=== PATIENT | female | born 1940 | race Caucasian/White ===

== ENCOUNTER 2018-05-13 09:21 | Outpatient (REF) | payer MEDICARE, SELFPAY ==
[2018-05-13 22:20] LABS: Anion Gap 9.9 mmol/L (3-11); BUN 17 mg/dL (7-18); CO2 31.1 mmol/L (21.0-32.0); Calcium 9.6 mg/dL (8.5-10.1); Chloride 101 mmol/L (98-107); Cholesterol 248 mg/dL (50-200); Glucose 119 mg/dL (70-100); HDL Cholesterol 58 mg/dL (40-60); LDL CHOLESTEROL 158 mg/dL (<100); Potassium 3.8 mmol/L (3.5-5.1); Sodium 142 mmol/L (136-145); Triglyceride 147 mg/dL (30-150)
== END 2018-05-13 09:41 ==
LOC: NCHCN 09:21
PROVIDERS: PCP Nurse Practitioner Family; Visit Provider Nurse Practitioner Family
DX: I10 Essential (primary) hypertension (principal); E78.5 Hyperlipidemia, unspecified; M85.80 Other specified disorders of bone density and structure, unspecified site; H35.30 Unspecified macular degeneration
CPT/HCPCS: 80048; 80061; 83721

== ENCOUNTER 2018-05-27 00:59 | Outpatient (CLI) | payer MEDICARE, SELFPAY ==
--- NOTE | 2018-05-27 17:01 | DI.MAMMO_ITS ---
SYMPTOMS/DIAGNOSIS: SCREENING, Z12.31 MAMMOGRAM: Mammograms were interpreted according to the usual protocol including computer analysis with CAD system, tomosynthesis and C view imaging. The breast tissue is of moderate radiodensity. There is no mass. There are no suspicious calcifications and there has been no significant interval change when compared with prior images. SUMMARY: No evidence of malignancy, Category I, yearly screening mammography is recommended. Breast density Category B. SA ASSESSMENT OF FINDINGS: Negative. Category 1. Patient will receive a letter notifying them of these results. BI-RADS category B. There are scattered areas of fibroglandular density.
== END 2018-05-27 01:19 ==
PROVIDERS: PCP Nurse Practitioner Family; Visit Provider Nurse Practitioner Family
DX: Z12.31 Encounter for screening mammogram for malignant neoplasm of breast (principal)
CPT/HCPCS: 77063; 77067

== ENCOUNTER 2018-11-20 11:33 | Outpatient (REF) | payer MEDICARE, SELFPAY ==
[2018-11-20 21:21] LABS: Anion Gap 9.6 mmol/L (3-11); BUN 19 mg/dL (7-18); CO2 28.4 mmol/L (21.0-32.0); CREATININE 0.89 mg/dL (0.55-1.02); Calcium 9.5 mg/dL (8.5-10.1); Chloride 103 mmol/L (98-107); Glucose 82 mg/dL (70-100); Potassium 3.4 mmol/L (3.5-5.1); Sodium 141 mmol/L (136-145)
== END 2018-11-20 11:53 ==
LOC: NCHCN 11:33
PROVIDERS: PCP Nurse Practitioner Family; Visit Provider Nurse Practitioner Family
DX: I10 Essential (primary) hypertension (principal)
CPT/HCPCS: 80048

== ENCOUNTER 2019-05-07 13:31 | Outpatient (REF) | payer MEDICARE, SELFPAY ==
[2019-05-07 19:50] LABS: Anion Gap 8.1 mmol/L (3-11); BUN 18 mg/dL (7-18); CO2 30.9 mmol/L (21.0-32.0); CREATININE 0.85 mg/dL (0.55-1.02); Calcium 9.5 mg/dL (8.5-10.1); Chloride 103 mmol/L (98-107); Glucose 111 mg/dL (74-106); Potassium 3.5 mmol/L (3.5-5.1); Sodium 142 mmol/L (136-145)
== END 2019-05-07 13:51 ==
LOC: NCHCN 13:31
PROVIDERS: PCP Nurse Practitioner Family; Visit Provider Nurse Practitioner Family
DX: I10 Essential (primary) hypertension (principal); H35.30 Unspecified macular degeneration; M85.80 Other specified disorders of bone density and structure, unspecified site
CPT/HCPCS: 80048

== ENCOUNTER 2019-08-03 02:15 | Outpatient (CLI) | payer MEDICARE, SELFPAY ==
--- NOTE | 2019-08-03 | DI.MAMMO_ITS ---
EXAM: MG MAMMO SCREENING CLINICAL HISTORY: SCREENING, Z12.39 TECHNIQUE: Bilateral full field digital CC and MLO mammographic images were obtained with 3D tomosyn thesis and utilizing computer aided detection (CAD). COMPARISON: Available for comparison. FINDINGS: Masses/Architectural Distortion: None seen. Microcalcifications: No suspicious pleomorphic-type are seen. Skin Thickening/Nipple Retraction: None. IMPRESSION: 1. No significant interval change with no specific features of malignancy noted. 2. Unless there is more urgent need, screening mammography is recommended, as per [employer] guidelines. BI-RADS Category 1 - Negative Breast Density - Category B - Scattered areas of fibroglandular density A negative radiographic report should not delay biopsy if a dominant or clinically suspicious mass is present. Up to ten percent of cancers are not identified on mammography. A negative report may reinforce clinical impression. Adenosis and dense breasts may obscure an underlying neoplasm. False positive reports average 6 to 10%. Patient will receive a letter notifying them of these results.
== END 2019-08-03 02:35 ==
PROVIDERS: PCP Nurse Practitioner Family; Visit Provider Nurse Practitioner Family
DX: Z12.31 Encounter for screening mammogram for malignant neoplasm of breast (principal)
CPT/HCPCS: 77063; 77067

== ENCOUNTER 2019-11-13 12:43 | Outpatient (REF) | payer MEDICARE, SELFPAY ==
[2019-11-13 19:49] LABS: Calculated LDL 135 mg/dL (<100); Cholesterol 219 mg/dL (<200); Glucose 112 mg/dL (74-106); HDL Cholesterol 48 mg/dL (40-60); Triglyceride 181 mg/dL (<150)
[2019-11-14 15:45] LABS: Anion Gap 10.4 mmol/L (3-11); BUN 20 mg/dL (7-18); CO2 29.6 mmol/L (21.0-32.0); CREATININE 0.91 mg/dL (0.55-1.02); Calcium 9.9 mg/dL (8.5-10.1); Chloride 103 mmol/L (98-107); Estimated GFR 59.63 (mL/min/1.73m2); Glucose 115 mg/dL (74-106); Potassium 3.9 mmol/L (3.5-5.1); Sodium 143 mmol/L (136-145)
== END 2019-11-13 13:03 ==
LOC: NCHCN 12:43
PROVIDERS: PCP Nurse Practitioner Family; Visit Provider Nurse Practitioner Family
DX: I10 Essential (primary) hypertension (principal); H35.30 Unspecified macular degeneration; M85.80 Other specified disorders of bone density and structure, unspecified site
CPT/HCPCS: 80048; 80061; 82947

== ENCOUNTER 2020-01-18 05:25 | Outpatient (REF) | payer MEDICARE, SELFPAY ==
[2020-01-18 19:50] LABS: ALT 22 U/L (14-59); AST 18 U/L (15-37); CREATININE 0.87 mg/dL (0.55-1.02); Calculated LDL 64 mg/dL (<100); Cholesterol 163 mg/dL (<200); HDL Cholesterol 53 mg/dL (40-60); Triglyceride 234 mg/dL (<150)
== END 2020-01-18 05:45 ==
LOC: NCHCN 05:25
PROVIDERS: PCP Nurse Practitioner Family; Visit Provider Nurse Practitioner Family
DX: E78.5 Hyperlipidemia, unspecified (principal); M85.80 Other specified disorders of bone density and structure, unspecified site
CPT/HCPCS: 80061; 82565; 84450; 84460

== ENCOUNTER 2020-05-23 15:31 | Outpatient (REF) | payer MEDICARE, SELFPAY ==
[2020-05-23 15:49] LABS: Hemoglobin A1C 5.9 % (<5.7)
[2020-05-23 16:03] LABS: BUN 17 mg/dL (7-18); CREATININE 0.8 mg/dL (0.55-1.02); Calcium 9.5 mg/dL (8.5-10.1); Chloride 103 mmol/L (98-107); Glucose 177 mg/dL (74-106); Potassium 3.6 mmol/L (3.5-5.1); Sodium 142 mmol/L (136-145)
== END 2020-05-23 15:32 | disposition home or self-care (01) ==
LOC: NCHCN 15:31
PROVIDERS: PCP Nurse Practitioner Family; Visit Provider Nurse Practitioner Family
DX: I10 Essential (primary) hypertension (principal); R73.9 Hyperglycemia, unspecified
CPT/HCPCS: 80048; 83036

== ENCOUNTER 2020-08-05 01:54 | Outpatient (CLI) | payer MEDICARE, SELFPAY ==
--- NOTE | 2020-08-05 | DI.MAMMO_ITS ---
Exam(s) MAMMO SCREENING EXAM: MAMMO SCREENING CLINICAL HISTORY: SCREENING, Z12.39. TECHNIQUE: Bilateral full field digital CC and MLO mammographic images were obtained with 3D tomosyn thesis and utilizing computer aided detection (CAD). COMPARISON: Prior mammograms dating back to 2010, the most recent being July 2019. FINDINGS: There has been no significant change in the appearance and distribution of the fibroglandular tissue. There are no CAD designations. There are no new spiculated masses nor malignant appearing microcalcification groups. There is no significant architectural distortion nor skin thickening-retraction. IMPRESSION: No radiographic evidence of malignancy. BI-RADS Category 1 - Negative Breast Density - Category B - Scattered areas of fibroglandular density Breast density Category C or D implies that the patient has dense breast tissue. Dense breast tissue can make it harder to find cancer on a mammogram. Dense breast tissue is also associated with an incr eased risk of breast cancer. This information about the result of the mammogram report was provided to the patient to raise their awareness. Use this report when you speak with the patient about their risks for breast cancer, which includes their family history. At that time, you may recommend additional screening tests (Ultrasoun d or MRI) as these tests may add significant information. A negative radiographic report should not delay biopsy if a dominant or clinically suspicious mass is present. Up to ten percent of cancers are not identified on mammography. A negative report may reinforce clinical impression. Adenosis and dense breasts may obscure an underlying neoplasm. False positive reports average 6 to 10%. Patient will receive a letter notifying them of these results.
== END 2020-08-05 02:14 ==
PROVIDERS: PCP Nurse Practitioner Family; Visit Provider Nurse Practitioner Family
DX: Z12.31 Encounter for screening mammogram for malignant neoplasm of breast (principal)
CPT/HCPCS: 77063; 77067

== ENCOUNTER 2020-08-10 16:51 | Outpatient (REF) | payer MEDICARE, SELFPAY ==
[2020-08-10 14:10] LABS: Calculated LDL 125 mg/dL (<100); Cholesterol 215 mg/dL (<200); HDL Cholesterol 47 mg/dL (40-60); Triglyceride 219 mg/dL (<150)
== END 2020-08-10 16:52 | disposition home or self-care (01) ==
LOC: NCHCN 16:51
PROVIDERS: PCP Nurse Practitioner Family; Visit Provider Nurse Practitioner Family
DX: E78.5 Hyperlipidemia, unspecified (principal)
CPT/HCPCS: 80061

== ENCOUNTER 2020-10-07 08:27 | Outpatient (REF) | payer MEDICARE, SELFPAY ==
[2020-10-07 15:08] LABS: ALT 21 U/L (14-59); AST 20 U/L (15-37); Calculated LDL 115 mg/dL (<100); Cholesterol 193 mg/dL (<200); HDL Cholesterol 48 mg/dL (40-60); Triglyceride 154 mg/dL (<150)
[2020-10-07 16:43] LABS: Creatine Kinase 76 U/L (26-192)
== END 2020-10-07 08:28 | disposition home or self-care (01) ==
LOC: NCHCN 08:27
PROVIDERS: PCP Nurse Practitioner Family; Visit Provider Nurse Practitioner Family
DX: E78.5 Hyperlipidemia, unspecified (principal)
CPT/HCPCS: 80061; 82550; 84450; 84460

== ENCOUNTER 2021-04-27 10:24 | Outpatient (REF) | payer MEDICARE, SELFPAY ==
[2021-04-27 12:34] LABS: BUN 15 mg/dL (7-18); CREATININE 0.8 mg/dL (0.55-1.02); Calcium 9.2 mg/dL (8.5-10.1); Chloride 103 mmol/L (98-107); Glucose 126 mg/dL (74-106); Potassium 3.7 mmol/L (3.5-5.1); Sodium 141 mmol/L (136-145); TSH (W/Ref FT4) 1.48 uIU/mL (0.36-3.74)
[2021-04-27 12:48] LABS: Vitamin D 25 Total 41.7 ng/mL (30-100)
== END 2021-04-27 10:25 | disposition home or self-care (01) ==
LOC: NCHCN 10:24
PROVIDERS: PCP Nurse Practitioner Family; Visit Provider Nurse Practitioner Family
DX: I10 Essential (primary) hypertension (principal); M85.88 Other specified disorders of bone density and structure, other site; I49.9 Cardiac arrhythmia, unspecified
CPT/HCPCS: 80048; 82306; 84443

== ENCOUNTER 2021-05-08 01:01 | Outpatient (RCR) | payer MEDICARE, SELFPAY ==
--- NOTE | 2021-05-08 11:30 | HOLTER_ITS ---
APPROVED REPORT Conclusion This a 48-hour Holter monitor ordered for an irregular heartbeat Predominant rhythm was sinus with an average heart rate of 85. Minimum was 58. Maximum heart rate o verall was 157 There were very rare ventricular ectopic beats There were frequent atrial premature beats and runs of atrial tachycardia An episode labeled atrial fibrillation appeared to be sinus with atrial tachycardia, not atrial fibri llation There was no high-grade AV block, no pauses greater than 3 seconds No patient symptoms were reported
== END 2021-05-25 23:59 | disposition home or self-care (01) ==
LOC: RT 01:01
PROVIDERS: PCP Nurse Practitioner Family; Visit Provider Nurse Practitioner Family
DX: I49.8 Other specified cardiac arrhythmias (principal); I49.1 Atrial premature depolarization; R00.0 Tachycardia, unspecified
CPT/HCPCS: 93227; 93225; 93226

== ENCOUNTER → 2021-08-07 01:46 | Outpatient (CLI) | payer MEDICARE, SELFPAY ==
--- NOTE | 2021-08-07 | DI.MAMMO_ITS ---
Exam(s) MAMMO SCREENING EXAM: MAMMO SCREENING CLINICAL HISTORY: SCREENING FOR BREAST CA, Z12.31 TECHNIQUE: Mammograms were interpreted according to the usual protocol including computer analysis w [employer] CAD system, tomosynthesis and C-view imaging. COMPARISON: 2012 through 2020 FINDINGS: The breasts are composed of scattered fibroglandular densities, Breast Density category B. No suspicious masses or suspicious microcalcifications are seen. No skin thickening or abnormal axillary lymph nodes are seen. There has been no significant change from prior exams. IMPRESSION: BI-RADS Category 1, Negative mammogram Yearly screening mammography is recommended. Breast Density - Category B, scattered fibroglandular densities. A negative radiographic report should not delay biopsy if a dominant or clinically suspicious mass is present. Up to ten percent of cancers are not identified on mammography. A negative report may reinforce clinical impression. Adenosis and dense breasts may obscure an underlying neoplasm. False positive reports average 6 to 10%. Patient will receive a letter notifying them of these results.
== END ==
PROVIDERS: PCP Nurse Practitioner Family; Visit Provider Nurse Practitioner Family
DX: Z12.31 Encounter for screening mammogram for malignant neoplasm of breast (principal)
CPT/HCPCS: 77063; 77067

== ENCOUNTER 2021-10-12 10:55 | Outpatient (REF) | payer MEDICARE, SELFPAY ==
[2021-10-12 15:49] LABS: Calculated LDL 123 mg/dL (<100); Cholesterol 211 mg/dL (<200); HDL Cholesterol 57 mg/dL (40-60); Triglyceride 158 mg/dL (<150)
[2021-10-12 16:35] LABS: Hemoglobin A1C 5.8 % (<5.7)
== END 2021-10-12 10:56 | disposition home or self-care (01) ==
LOC: NCHCN 10:55
PROVIDERS: PCP Nurse Practitioner Family; Visit Provider Nurse Practitioner Family
DX: E78.5 Hyperlipidemia, unspecified (principal); R73.9 Hyperglycemia, unspecified
CPT/HCPCS: 80061; 83036

== ENCOUNTER → 2022-05-03 12:59 | Outpatient (BNVA) | payer MEDICARE, SELFPAY | PROVIDERS: PCP Nurse Practitioner Family; Referring Provider Nurse Practitioner Family; Visit Provider Physical Therapy Assistant | DX: Z12.11 Encounter for screening for malignant neoplasm of colon (principal) ==

== ENCOUNTER 2022-05-14 09:11 | Day surgery (SDC) | payer MEDICARE, SELFPAY ==
--- NOTE | 2022-05-13 17:46 | W.ANESPRE ---
General Info Date of Service Date Performed: 05/14/22 Height: 5 ft 1 in Weight: 56.699 kg Body Mass Index (BMI): 23.6 Surgical Procedure: Operation Date: 05/14/22 12:05 Proposed Procedure Side Surgeon corby Ch MD Meds Allergies and Home Medications Allergies Allergy/AdvReac Type Severity Reaction Status Date / Time No Known Allergies Allergy Unverified 05/14/22 09:38 Home Medication Medication Instructions Recorded cholecalciferol (vitamin D3) 25 1,000 unit PO DAILY 05/23/15 mcg (1,000 unit) tablet aspirin 81 mg tablet,delayed 81 mg PO DAILY 05/25/15 release (Aspir-) hydrochlorothiazide 25 mg tablet 25 mg PO DAILY 10/12/21 pravastatin 10 mg tablet 10 mg PO DAILY 10/12/21 Current Visit Medications: Current Medications Generic Name Dose Route Start Last Admin Trade Name Freq PRN Reason Stop Dose Admin Ringer's Solution 1,000 mls @ 80 mls/hr 05/14/22 06:00 IV 06/10/22 23:59 INFUSION KALPANA IV Miscellaneous Supplies 1 each 05/14/22 06:00 Iv Access IV 06/10/22 23:59 DIRECTED KALPANA Sodium Chloride 0 ml 05/14/22 06:00 Normal Saline Flush 10 Ml Syr IV 06/10/22 23:59 PRN PRN Sodium Chloride 0 ml 05/14/22 06:00 Normal Saline 10 Ml Vial IJ 06/10/22 23:59 DIRECTED PRN Sterile Water 0 ml 05/14/22 06:00 Water,Injection,Sterile 10 Ml Vial IJ 06/10/22 23:59 DIRECTED PRN PFSH Active Problems Active Problems: Problem Status Onset Code Irregular heart beats I49.9 Tinnitus H93.19 Elevated blood sugar R73.9 Hypertension I10 Hyperlipidemia E78.5 Macular degeneration, right eye H35.30 Screening for colon cancer Z12.11 Medical History Medical History Cataract Diverticulosis Osteopenia Surgical History Surgical History History of tubal ligation Hx of unilateral oophorectomy Tobacco Smoking/Tobacco Use Status: Former Tobacco Use Alcohol Alcohol Intake: current Alcohol intake frequency: holidays/special occasions only Substance Use Substance use: Never Substance use type: does not use Vital Signs and Lab Results Vital Signs Most Recent Vital Signs in EMR: Temp Pulse Resp BP Pulse Ox 36.4 C L 105 H 20 179/88 H 99 05/14/22 09:12 05/14/22 09:12 05/14/22 09:12 05/14/22 09:12 05/14/22 09:12 Lab Results Blood Type / Crossmatch: No Data to Display Complete Blood Count: No Data to Display Complete Metabolic Panel: No Data to Display Liver Function Panel: No Data to Display Coagulation Panel: No Data to Display Cardiac Panel: No Data to Display Arterial Blood Gas: No Data to Display Venous Blood Gas: No Data to Display Pancreas Panel: No Data to Display Thyroid Panel: No Data to Display Infectious Disease: No Data to Display Blood Cultures: No Data to Display Toxicology Panel: No Data to Display Anesthesia Assessment and Plan Anesthesia History Personal History: No History of Anesthesia Complications Family History: No Family History of Anesthesia Complications Exercise Tolerance Exercise Tolerance: Metabolic Equivalents>4 Cardiac & Pulmonary Exam Cardiac Exam: Normal S1/S2 Heart Sounds Pulmonary Exam: Clear Bilateral Breath Sounds Implantable Cardiac Device Does patient have a Pacemaker or an ICD?: No Airway Exam Known Difficult Airway: No Mallampati Class: 3 Mouth Opening: Narrow (< 3cm) Thyromental Distance: Greater than 3 cm Neck Range of Motion: Full ROM Neck Circumference: Normal Teeth Condition: Normal Dentition and Removable Dentures/Plates Upper ASA Classification ASA Score: ASA 2 Emergency Case?: No NPO Status NPO Status: NPO Clears >2 hours, Solids >8 hours Anesthesia Plan Resuscitation Status: Full Code Anesthesia Technique: General Anesthesia Airway Planned: Natural Airway Monitors Used: Standard Monitors Preoperative Comments:: 82 yo female for colo. sig PMHx: HTN (HCTZ), former smoker, occ EtOH,
--- NOTE | 2022-05-13 20:59 | PDOC.DSDIS_ITS ---
Date of service: 05/14/22 Time of Service: 11:08 Discharge Plan Disposition Patient Disposition: Home Condition: Good Discharge Details Reason For Visit: Colonoscopy Attending Provider: Juwan Ch Primary Care Provider: Esperanza Mcfarlane Home Meds and New Rx's Prescriptions: Continued pravastatin 10 mg tablet 10 mg PO DAILY hydrochlorothiazide 25 mg tablet 25 mg PO DAILY cholecalciferol (vitamin D3) 1,000 UNITS tablet 1,000 unit PO DAILY aspirin [Aspir-81] 81 MG tablet,delayed release (DR/EC) 81 mg PO DAILY Discontinued bisacodyl [Dulcolax (bisacodyl)] 5 mg tablet,delayed release (DR/EC) 5 mg PO ONCE Qty: 4 0RF Rx Instructions: Take according to provider's instructions for colonoscopy prep. polyethylene glycol 3350 17 gram/dose powder 17 g PO ONCE Qty: 238 0RF Rx Instructions: To be taken as directed by prescriber's office for colonoscopy prep. Discharge Instructions Instructions: Diverticulosis (GEN), Colorectal Polyps (GEN), Diverticulosis Diet (GEN) Additional Instructions: Dennise, we were able to complete your colonoscopy today. You have a fair amount of diverticulosis. I have attached some information here regarding diverticular disease and general management principles. I did find 2 polyps in the first part of your large intestine, which is also known as your cecum. One of the 2 was rather large, and I removed it in 2 pieces. The other was fairly common appearing and came out in a single specimen. I would like to see you in the office on at 9:15 AM to discuss the pathology report, and make a plan from there. If you have any questions in the meantime, please feel free to call at any point. 1. If tolerated, consume a soft, low fiber diet for 1-2 days. 2. Do not drive, drink alcohol, operate machinery, make critical decisions, or do activities that require coordination or balance for 24 hours. 3. Because air was put into your colon during the procedure, expelling air from your rectum (passing gas or farting) is normal. 4. You may not have a bowel movement for 1-3 days because of the colonoscopy prep. This is normal. 5. Go directly to the emergency room if you notice any of the following: Develop chills (warm to touch), or if you have a thermometer and your temperature is above 101 Difficulty breathing or difficultly swallowing Persistent vomiting Severe abdominal pain, other than gas cramps Severe chest pain Black, tarry stools Any bleeding ? exceeding one tablespoon 6. Call your physician if the site where your intravenous was started becomes red, swollen, painful, and warm to touch. 7. Your physician has reviewed your pre-procedure medications. Please continue to take those medications as previously ordered. You will be given specific information/education regarding any changes to your medications before leaving. Referrals: Juwan Ch MD [ [facility]YSIC[facility]] - (May 23 at 9:15 AM ) Activity:: Activity as Tolerated Diet:: As Tolerated Discharge Orders Discharge Orders: Discharge Order (Routine); Ordered 05/13/22 Ordered By: Juwan Ch DS: Diagnosis Discharge Diagnosis (1) Screening for colon cancer: Status: Acute Asessment and Plan: Follow-up on pathology Outpatient office visit to discuss results
--- NOTE | 2022-05-13 21:00 | W.COLOREPORT ---
Date of service: 05/14/22 Time of Service: 11:14 Colonoscopy Report Date of procedure: 05/14/22 Pre-op diagnosis general: Screening colonoscopy Post-op diagnosis procedure note: other (Diverticulosis, cecal polyps) Procedure: Colonoscopy Surgeon: Juwan Ch Anesthesia Type: General:No Airway Estimated blood loss (mL): 5 Pathology: other (Cecal polyps) Complications: None Disposition: same day Indications: Lexus is an 82-year-old woman here for screening colonoscopy Prep: Miralax/Dulcolax Procedure Start Time: 10:14 Procedure End Time: 10:54 Retraction Time: 22 Findings: Cecal polyps Procedure Description: After the induction of monitored anesthetic care, and with the patient in left lateral decubitus position, I began by performing an external anorectal exam.? Perineum and skin were normal, as was the anal verge.? There was no not evidence of external hemorrhoids.? Next, I performed a digital rectal exam.? I did appreciate any abnormal findings.? Next, I advanced a colonoscope into the rectal vault.? I performed retroflexion.? This was normal.? Using insufflation, I then advanced the colonoscope beyond the rectal folds and into the sigmoid colon before advancing towards the cecum.? There was extensive sigmoid diverticulosis, extending from 25 cm to about 35 to 40 cm beyond the anal verge. It was quite challenging to navigate the true lumen of the colon. Great care was taken to minimize iatrogenic injury. The quality of the prep was excellent.? The scope was noted to be in the cecum by identification of the ileocecal valve and appendiceal orifice.? There were 2 cecal polyps. One was about 0.5 cm, sessile, and easily removed with cold snare polypectomy. There was minimal bleeding. The other polyp was larger. I estimated about 2 cm in its maximal dimension. It was generally sessile in appearance, but there were some fungating elements as the margins were bit heaped up. I was able to remove this in 2 specimens using energized snare polypectomy. There was minimal bleeding. I then began withdrawing the colonoscope using repeated irrigation as necessary for full evaluation of the colonic mucosa. ?Once the scope was withdrawn to the level of the rectum, great care was taken to examine portions of the rectal folds.? Finally, the scope was withdrawn and the patient was brought to the same-day surgery recovery unit as the anesthetic wore off. ?The findings and instructions were shared with the patient prior to discharge.
[2022-05-14] VITALS (9 sets, daily range): BP systolic 114–179; BP diastolic 54–99; PULSE 64–105; RESP 16–22; TEMP 36.3–36.7; O2SAT 92–99; BMI 23.6
[2022-05-14] MEDS: Lactated Ringers 1,000 ML 80 ML IV (09:38)
--- NOTE | 2022-05-14 10:43 | BOWEL_PTH ---
PATIENT: Dennise Manzo LOC: [facility] U#:[id number] AGE/SX: 82/F ROOM: RE05/14/[address]: Juwan Ch MD : [id number] BED: DIS: 05/14/2022 SPEC #: [id number] RECD: 05/14/22 11:38 STATUS: NAKUL REQ #: [id number] MACIE: 05/14/22 10:[address]: Juwan Ch DEPT: Surgical Specimen RECD BY: Taylor Heredia ENTERED: 05/14/22 11:44 SP TYPE: Bowel OTHR DR: Esperanza Mcfarlane Tissues: 1 - BIOPSY BOWEL Procedures: GROSS AND MICRO LEVEL 4 Comments: [id number]
--- NOTE | 2022-05-14 11:52 | ANES.POST_ITS ---
Postoperative Evaluation Date, Time and Location Date Performed: 05/14/22 Time Performed: 11:52 Patient Location: PACU Vital Signs Most Recent Imported Vital Signs: Most Recent Vital Signs Temp Pulse Resp BP Pulse Ox 36.4 C L 64 16 151/99 H 92 05/14/22 11:38 05/14/22 11:38 05/14/22 11:38 05/14/22 11:38 05/14/22 11:38 Pain Score Most Recent Pain Score: Most Recent Pain Score Pain Level 0 05/14/22 11:38 Assessment Mental Status: Awake (Alert & Oriented to Patient Baseline) Airway and Respiratory Function: Patent airway with normal (patient baseline) respiratory exam Cardiovascular Function: Hemodynamically Stable Hydration Status: Adequately Hydrated Nausea & Vomiting: No Nausea or Vomiting Pain: Pt. Denies Any Pain Peripheral Nerve Block: Patient did not receive a nerve block Postoperative Comments:: Patient doing well, discussed need for deep breathing and coughing during the postoperative period. Discussed postnasal drip and patient need for jaw- thrusts/larsens maneuver during case due to laryngospasm and that patient might experience discomfort behind the jaw. Patient appropriate for discharge at this time.
== END 2022-05-14 09:12 | disposition home or self-care (01) ==
PROVIDERS: PCP Nurse Practitioner Family; Visit Provider Surgery
PROC: 0DJD8ZZ Inspection of Lower Intestinal Tract, Via Natural or Artificial Opening Endoscopic (ICD-10-PCS; CPT 45378; principal; 2022-05-14 10:30)
DX: Z12.11 Encounter for screening for malignant neoplasm of colon (principal); K63.5 Polyp of colon; K57.30 Diverticulosis of large intestine without perforation or abscess without bleeding
CPT/HCPCS: 45385; 88305; J2704

== ENCOUNTER → 2022-05-23 09:07 | Outpatient (BNVA) | payer MEDICARE, SELFPAY | PROVIDERS: PCP Nurse Practitioner Family; Referring Provider Nurse Practitioner Family; Visit Provider Surgery | DX: D36.9 Benign neoplasm, unspecified site (principal) | CPT/HCPCS: 99213 ==

== ENCOUNTER 2022-08-30 17:03 | Outpatient (REF) | payer MEDICARE, SELFPAY ==
[2022-08-30 20:56] LABS: Bacteria Few HPF (Negative); C & S Indicated? C&S Done As Ordered; Casts Negative LPF (Negative); Crystals Negative HPF (Negative); Epithelial Cells Few HPF (Negative); Mucus Negative (Negative); RBC 0-2 HPF (0-2)
== END 2022-08-30 17:04 | disposition home or self-care (01) ==
LOC: NCHCN 17:03
PROVIDERS: PCP Nurse Practitioner Family; Visit Provider Nurse Practitioner Family
DX: R31.9 Hematuria, unspecified (principal); R30.0 Dysuria
CPT/HCPCS: 81015; 87086

== ENCOUNTER 2022-10-15 12:52 | Outpatient (REF) | payer MEDICARE, SELFPAY ==
[2022-10-15 17:17] LABS: Anion Gap 6.5 mmol/L (3-11); BUN 11 mg/dL (7-18); CO2 30.5 mmol/L (21.0-32.0); CREATININE 0.8 mg/dL (0.55-1.02); Calcium 9.2 mg/dL (8.5-10.1); Calculated LDL 103 mg/dL (<100); Chloride 102 mmol/L (98-107); Cholesterol 196 mg/dL (<200); Estimated GFR 73.52 (mL/min/1.73m2); Glucose 108 mg/dL (74-106); HDL Cholesterol 59 mg/dL (40-60); Potassium 3.7 mmol/L (3.5-5.1); Sodium 139 mmol/L (136-145); Triglyceride 171 mg/dL (<150)
[2022-10-15 17:58] LABS: Hemoglobin A1C 5.4 % (<5.7)
== END 2022-10-15 12:53 | disposition home or self-care (01) ==
LOC: NCHCN 12:52
PROVIDERS: PCP Nurse Practitioner Family; Visit Provider Nurse Practitioner Family
DX: I10 Essential (primary) hypertension (principal); R73.9 Hyperglycemia, unspecified; E78.5 Hyperlipidemia, unspecified
CPT/HCPCS: 80048; 80061; 83036

== ENCOUNTER → 2022-11-09 00:12 | Outpatient (CLI) | payer MEDICARE, SELFPAY ==
--- NOTE | 2022-11-09 | DI.MAMMO_ITS ---
Exam(s) MAMMO SCREENING EXAM: MAMMO SCREENING CLINICAL HISTORY: SCREENING MAMMO FOR BREAST CANCER Z12.39Z12.31 TECHNIQUE: Bilateral full field digital CC and MLO mammographic images were obtained with 3D tomosyn thesis and utilizing computer aided detection (CAD). COMPARISON: Available for comparison. FINDINGS: Masses/Architectural Distortion: There is an area of increased density in the outer central left [address] on the craniocaudad view. This may represent overlying fibroglandular tissue. Microcalcifications: No suspicious pleomorphic-type are seen. Skin Thickening/Nipple Retraction: None. IMPRESSION: 1. Area of increased density in the outer left breast on the craniocaudad view. While this may repre sent overlying fibroglandular tissue is spot compression views requested for further evaluation. 2. Spot left CC views requested for further evaluation. Limited left breast ultrasound may be indica monalisa at that time. BI-RADS Category 0 - Assessment Incomplete: Need additional imaging evaluation Breast Density - Category B - Scattered areas of fibroglandular density Breast density category C or D implies that the patient has dense breast tissue. Dense breast tissue is very common and is not abnormal but dense breast tissue can make it harder to find cancer on a ma mmogram. Also, dense breast tissue may increase their breast cancer risk. This information about the result of the mammogram report was provided to the patient to raise their awareness. Use this report when you speak with the patient about their risks for breast cancer, which includes their family hist ory. At that time, you may recommend for more screening tests (Ultrasound or MRI) as they might be us eful based on their risk. A negative radiographic report should not delay biopsy if a dominant or clinically suspicious mass is present. Up to ten percent of cancers are not identified on mammography. A negative report may reinforce clinical impression. Adenosis and dense breasts may obscure an underlying neoplasm. False positive reports average 6 to 10%. Patient will receive a letter notifying them of these results.
--- NOTE | 2022-11-09 13:10 | DI.DEXA_ITS ---
Exam(s) XR DEXA BONE DENSITY W/WO CHICHI EXAM: XR DEXA BONE DENSITY W/WO CHICHI CLINICAL HISTORY: OSTEOPENIA M85.80 MENOPAUSAL Z78.0 TECHNIQUE: [employer] C densitometer analysis of left hip, lumbar spine and left forearm. Lat eral survey image of the thoracic and lumbar spine. COMPARISON: 2006 DEXA DX DEXA BONE DENSITY WITH CHICHI from 11/30/2010 DX DEXA BONE DENSITY WITH CHICHI from 05/17/2015 FINDINGS: Lateral view of the thoracic and lumbar spine shows no evidence of compression fractures. Bone mineral density measurements of the lumbar spine correspond to a total T-score of 0.4, in the normal range. This represents a 5 percent increase from 2016 and an 11.3 percent increase from 2005. Bone mineral density measurements of the left hip correspond to a total T-score of -1.7. The femora l neck T-score is -2.6, in the osteoporotic range. This represents a 6.3 percent decrease from 2005 as well as 2015. Theleft forearm bone mineral density measurements correspond to a T-score of the distal 3rd of -2.8, in the osteoporotic range. This represents an 8.3 percent decrease from 2016 and a 6.2 percent decr ease from 2010. The forearm was not analyzed in 2005.. IMPRESSION: Normal bone mineral density of the lumbar spine with increased from prior exam. Osteoporosis of the left hip and forearm with mild decreases from priors.
== END ==
PROVIDERS: PCP Nurse Practitioner Family; Visit Provider Nurse Practitioner Family
DX: Z78.0 Asymptomatic menopausal state (principal); Z12.31 Encounter for screening mammogram for malignant neoplasm of breast; Z13.820 Encounter for screening for osteoporosis
CPT/HCPCS: 77063; 77067; 77080

== ENCOUNTER → 2022-11-13 02:48 | Outpatient (CLI) | payer MEDICARE, SELFPAY ==
--- NOTE | 2022-11-13 09:08 | DI.MAMMO_ITS ---
Exam(s) MAMMO SCREEN CALL BACK UNI EXAM: MAMMO SCREEN CALL BACK UNI CLINICAL HISTORY: INCREASED DENSITY IN OUTER LT BREAST ON CC VIEW. TECHNIQUE: Craniocaudal and mediolateral oblique Full Field Digital Mammography views of the left br east with Computer Aided Diagnosis. COMPARISON: Comparison is made with prior examinations. FINDINGS: Mammography/Tomosynthesis: Masses/Architectural Distortion: The area of concern dissipates on spot compression views. No mass o r area of architectural distortion is identified. Microcalcifictions: No suspicious pleomorphic-type are seen. Skin Thickening/Nipple Retraction: None. IMPRESSION: 1. No evidence of malignancy is noted. 2. Unless there is more urgent need, follow-up screening mammography is recommended, as per [employer] guidelines. 3. The findings were discussed with the patient on the date of the examination. BI-RADS Category 1 - Negative Breast Density - Category B - Scattered areas of fibroglandular density Breast density Category C or D implies that the patient has dense breast tissue. Dense breast tissue can make it harder to find cancer on a mammogram. Dense breast tissue is also associated with an incr eased risk of breast cancer. This information about the result of the mammogram report was provided to the patient to raise their awareness. Use this report when you speak with the patient about their risks for breast cancer, which includes their family history. At that time, you may recommend additional screening tests (Ultrasoun d or MRI) as these tests may add significant information. A negative radiographic report should not delay biopsy if a dominant or clinically suspicious mass is present. Up to ten percent of cancers are not identified on mammography. A negative report may reinforce clinical impression. Adenosis and dense breasts may obscure an underlying neoplasm. False positive reports average 6 to 10%. Patient will receive a letter notifying them of these results.
== END ==
PROVIDERS: PCP Nurse Practitioner Family; Visit Provider Nurse Practitioner Family
DX: Z12.31 Encounter for screening mammogram for malignant neoplasm of breast (principal); R92.8 Other abnormal and inconclusive findings on diagnostic imaging of breast
CPT/HCPCS: 77063; 77067

== ENCOUNTER → 2023-05-01 09:45 | Outpatient (BNVA) | payer MEDICARE, SELFPAY | PROVIDERS: PCP Nurse Practitioner Family; Referring Provider Nurse Practitioner Family; Visit Provider Surgery | DX: Z12.11 Encounter for screening for malignant neoplasm of colon (principal); Z86.010 Personal history of colon polyps ==

== ENCOUNTER 2023-06-10 09:46 | Day surgery (SDC) | payer MEDICARE, SELFPAY ==
--- NOTE | 2023-06-09 12:57 | W.PM.DSUDISC ---
Date of service: 06/10/23 Time of Service: 13:52 Discharge Plan Disposition Patient Disposition: Home Condition: Good Discharge Details Reason For Visit: screening colonoscopy Attending Provider: Juwan Ch Primary Care Provider: Esperanza Mcfarlane Home Meds and New Rx's Prescriptions: Continued ondansetron HCl 4 mg tablet 4 mg PO Q8H PRN (Reason: nausea and vomiting) Qty: 3 0RF Rx Instructions: Take 1 tablet by mouth up to every 8 hours if needed for nausea during the bowel prep. pravastatin 10 mg tablet 10 mg PO DAILY hydrochlorothiazide 25 mg tablet 25 mg PO DAILY cholecalciferol (vitamin D3) 25 mcg (1,000 unit) capsule 25 mcg PO DAILY albuterol sulfate [ProAir HFA] 90 mcg/actuation HFA aerosol inhaler 2 puff inhalation Q6H PRN Hold Instructions: Pt Stopped/Never Started Rx Instructions: 1-2 puffs every 4-6 hrs as needed multivitamin Tablet 1 tab PO DAILY aspirin [Aspir-81] 81 MG tablet,delayed release (DR/EC) 81 mg PO DAILY Discharge Instructions Additional Instructions: Dennise, I will be feel well after the colonoscopy, and hope you have a great day afterwards. Again, I really appreciate all of your patients through today. The procedure itself went very smoothly. I did find 3 polyps. All were quite small, and I removed them all today. The area that I was worried about previously looks fine, and I do not see any signs of anything to worry about. Similar to last time, these polyps will be sent off for testing to help determine the nature. Based on what I saw today, I suspect that you will need anything else done after this. I typically recommend screening colonoscopies up to age 85. Assuming the polyps that I removed today do not show anything worrisome, then this will most likely be your last colonoscopy. As soon as I have the results of the polyp analysis, I will be in touch. If you have any questions in the meantime, please do not hesitate to call or ask at any point. 1. If tolerated, consume a soft, low fiber diet for 1-2 days. 2[address] Do not drive, drink alcohol, operate machinery, make critical decisions, or do activities that require coordination or balance for 24 hours. 3. Because air was put into your colon during the procedure, expelling air from your rectum (passing gas or farting) is normal. 4. You may not have a bowel movement for 1-3 days because of the colonoscopy prep. This is normal. 5. Go directly to the emergency room if you notice any of the following: Develop chills (warm to touch), or if you have a thermometer and your temperature is above 101 Difficulty breathing or difficultly swallowing Persistent vomiting Severe abdominal pain, other than gas cramps Severe chest pain Black, tarry stools Any bleeding ? exceeding one tablespoon 6. Call your physician if the site where your intravenous was started becomes red, swollen, painful, and warm to touch. 7. Your physician has reviewed your pre-procedure medications. Please continue to take those medications as previously ordered. You will be given specific information/education regarding any changes to your medications before leaving. Activity:: Activity as Tolerated Diet:: As Tolerated Discharge Orders Discharge Orders: Discharge Order (Routine); Ordered 06/09/23 Ordered By: Juwan Ch DS: Diagnosis Discharge Diagnosis (1) Encounter for screening colonoscopy: Status: Acute Asessment and Plan: Follow-up on polypectomy results
--- NOTE | 2023-06-09 13:02 | COLE_ITS ---
Date of service: 06/10/23 Time of Service: 13:54 Colonoscopy Report Date of procedure: 06/10/23 Pre-op diagnosis general: screening colonoscopy Post-op diagnosis procedure note: other (Colon polyps) Procedure: colonoscopy with polypectomy Surgeon: Juwan Ch Anesthesia Type: General:No Airway Estimated blood loss (mL): 5 Pathology: other (0.5 cm cecal polyps x 2, 0.25 cm polyp at 65 cm) Complications: None Disposition: same day Indications: Dennise is an 83 year old woman with a history of adenomatous polyps. She needs her next screening colonoscopy Prep: Miralax/Dulcolax Procedure Start Time: 13:15 Procedure End Time: 13:45 Retraction Time: 11 Findings: Sigmoid diverticulosis, 0.5 cm cecal polyps x 2, 0.25 cm polyp at 65 cm Procedure Description: After the induction of monitored anesthetic care, and with the patient in left lateral decubitus position, I began by performing an external anorectal exam.? Perineum and skin were normal, as was the anal verge.? There was no evidence of external hemorrhoids.? Next, I performed a digital rectal exam.? I did not appreciate any abnormal findings.? Next, I advanced a colonoscope into the rectal vault.? I performed retroflexion.? This appeared normal.? Using insufflation, I then advanced the colonoscope beyond the rectal folds and into the sigmoid colon before advancing towards the cecum.? The scope was noted to be in the cecum by identification of the ileocecal valve and appendiceal orifice.? I did find 2 polyps within the cecum. Both were sessile, both were removed with cold forceps. I would estimate the size of each of these polyps to be about 0.5 cm. There was minimal bleeding from the sites. I then began withdrawing the colonoscope using repeated irrigation as necessary for full evaluation of the colonic mucosa. ?Around 65 cm from the anal verge was another polyp. This was also flat, and about 0.25 cm in size. This was removed with cold forceps as well once the scope was withdrawn to the level of the rectum, great care was taken to examine portions of the rectal folds.? Finally, the scope was withdrawn and the patient was brought to the same-day surgery recovery unit as the anesthetic wore off. ?The findings and instructions were shared with the patient prior to discharge. [place] Bowel Prep [place] Bowel Prep Right Colon: 3 Left Colon: 3 Transverse Colon: 3 Total Score: 9
[2023-06-10 10:15] VITALS: BP 178/75; PULSE 79; RESP 20; TEMP 36.2; O2SAT 99
[2023-06-10] MEDS: Lactated Ringers 1,000 ML 80 ML IV (10:55)
--- NOTE | 2023-06-10 11:03 | W.ANESPRE ---
General Info Date of Service Date Performed: 06/10/23 Height: 5 ft 1 in Weight: 53.9 kg Body Mass Index (BMI): 22.4 Surgical Procedure: Operation Date: 06/10/23 11:20 Proposed Procedure Side Surgeon corby Ch MD Meds Allergies and Home Medications Allergies Allergy/AdvReac Type Severity Reaction Status Date / Time No Known Allergies Allergy Unverified 06/10/23 10:25 Home Medication Medication Instructions Recorded aspirin 81 mg tablet,delayed 81 mg PO DAILY 05/25/15 release (Aspir-) hydrochlorothiazide 25 mg tablet 25 mg PO DAILY 10/12/21 pravastatin 10 mg tablet 10 mg PO DAILY 10/12/21 albuterol sulfate 90 mcg/actuation 2 puff inhalation Q6H PRN 04/19/23 aerosol inhaler (ProAir HFA) cholecalciferol (vitamin D3) 25 25 mcg PO DAILY 04/19/23 mcg (1,000 unit) capsule multivitamin 1 tab PO DAILY 04/19/23 ondansetron HCl 4 mg tablet 4 mg PO Q8H PRN nausea and 05/01/23 vomiting #3 tabs Current Visit Medications: Current Medications Generic Name Dose Route Start Last Admin Trade Name Freq PRN Reason Stop Dose Admin Hyoscyamine Sulfate 0.125 mg 06/09/23 13:03 Hyoscyamine 0.125 Mg Sl/Oral/Chew SL 07/09/23 13:02 DIRECTED PRN Ringer's Solution 1,000 mls @ 80 mls/hr 06/10/23 06:00 06/10/23 10:55 IV 06/10/23 23:59 80 mls/hr INFUSION KALPANA Administration IV Miscellaneous Supplies 1 each 06/10/23 06:00 Iv Access IV 06/10/23 23:59 DIRECTED KALPANA Ondansetron HCl 4 mg 06/09/23 13:03 Ondansetron 4 Mg/2 Ml Vial IVP 07/09/23 13:02 Q4H PRN PRN Nausea / Vomiting Sodium Chloride 0 ml 06/10/23 06:00 Normal Saline Flush 10 Ml Syr IV 06/10/23 23:59 PRN PRN Sodium Chloride 0 ml 06/10/23 06:00 Normal Saline 10 Ml Vial IJ 06/10/23 23:59 DIRECTED PRN Sterile Water 0 ml 06/10/23 06:00 Water,Injection,Sterile 10 Ml Vial IJ 06/10/23 23:59 DIRECTED PRN PFSH Active Problems Active Problems: Problem Status Onset Code Encounter for screening colonoscopy Z12.11 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 Irregular heart beats I49.9 Tinnitus H93.19 Elevated blood sugar R73.9 Hypertension I10 Hyperlipidemia E78.5 Macular degeneration, right eye H35.30 Screening for colon cancer Z12.11 Medical History Medical History Urinary frequency Dysuria Diverticulosis Cataract Osteopenia Surgical History Surgical History Hx of right cataract extraction History of colonoscopy with polypectomy (~05/14/22) Hx of unilateral oophorectomy left History of tubal ligation Tobacco Smoking/Tobacco Use Status: Former Tobacco Use Alcohol Alcohol Intake: current Alcohol intake frequency: holidays/special occasions only Alcohol type: hard liquor Substance Use Substance use: Never Substance use type: does not use Vital Signs and Lab Results Vital Signs Most Recent Vital Signs in EMR: Most Recent Vital Signs Temp Pulse Resp BP Pulse Ox 36.2 C L 79 20 178/75 H 99 06/10/23 10:15 06/10/23 10:15 06/10/23 10:15 06/10/23 10:15 06/10/23 10:15 Lab Results Blood Type / Crossmatch: No Data to Display Complete Blood Count: No Data to Display Complete Metabolic Panel: No Data to Display Liver Function Panel: No Data to Display Coagulation Panel: No Data to Display Cardiac Panel: No Data to Display Arterial Blood Gas: No Data to Display Venous Blood Gas: No Data to Display Pancreas Panel: No Data to Display Thyroid Panel: No Data to Display Infectious Disease: No Data to Display Blood Cultures: No Data to Display Toxicology Panel: No Data to Display Anesthesia Assessment and Plan Anesthesia History Personal History: No History of Anesthesia Complications Family History: No Family History of Anesthesia Complications Exercise Tolerance Exercise Tolerance: Metabolic Equivalents>4 Pertinent Negatives Pertinent Negatives: No Major Cardiovascular Symptoms or Complaints, No Major Pulmonary Symptoms or Complaints and No History of CVA/TIA Cardiac & Pulmonary Exam Cardiac Exam: Normal S1/S2 Heart Sounds Pulmonary Exam: Clear Bilateral Breath Sounds Cardiac and Pulmonary Comment:: Does not use/need inhaler Implantable Cardiac Device Does patient have a Pacemaker or an ICD?: No Airway Exam Known Difficult Airway: No Mallampati Class: 3 Mouth Opening: Narrow (< 3cm) Thyromental Distance: Greater than 3 cm Neck Range of Motion: Full ROM Neck Circumference: Normal Teeth Condition: Normal Dentition and Removable Dentures/Plates Upper ASA Classification ASA Score: ASA 2 Emergency Case?: No NPO Status NPO Status: NPO Clears >2 hours, Solids >8 hours Anesthesia Plan Resuscitation Status: Full Code Anesthesia Technique: General Anesthesia Airway Planned: Natural Airway Monitors Used: Standard Monitors Preoperative Comments:: Follow up from her colonoscopy last year, where she underwent colonoscopic removal of a large tubulovillous adenoma. sig PMHx: HTN (HCTZ), former smoker, occ EtOH
[2023-06-10 11:22] VITALS: BMI 22.4
--- NOTE | 2023-06-10 11:31 | W.PM.HP.N ---
Date of service: 06/10/23 Time of Service: 11:31 Assessment and Plan Assessment and plan (1) Encounter for screening colonoscopy: Status: Acute Assessment and plan: We reviewed the plan for another colonoscopy today. She has very good understanding of the nature of the procedure, as well as the risks and the benefits. We can proceed as planned. History of Present Illness History of Present Illness Chief Complaint: Tubulovillous adenoma Narrative: Lexus is a 3 years old, and she underwent screening colonoscopy last year. She had a large tubulovillous adenoma resected from the cecum. Given the size and clinical features, I felt the safest thing to do is return within 1 year for reassessment of the area. Since her last office visit, there have been no significant interval changes with regards to her history or physical. PFSH All Active Problems Encounter for screening colonoscopy (Acute) Tubulovillous adenoma (Acute ~05/14/22) Irregular heart beats (Acute) Tinnitus (Acute) Elevated blood sugar (Acute) Hypertension (Chronic) Hyperlipidemia (Acute) Macular degeneration, right eye (Acute) Screening for colon cancer (Acute) Medical History Urinary frequency Dysuria Diverticulosis Cataract Osteopenia Surgical History Hx of right cataract extraction History of colonoscopy with polypectomy (~05/14/22) Hx of unilateral oophorectomy left History of tubal ligation Social History Smoking/Tobacco Use Status: Former Tobacco Use Quit Date: 02/25/79 Smoking risk assessment performed?: Yes Alcohol Intake: current Alcohol Intake frequency: holidays/special occasions only Alcohol type: hard liquor Drug use: Never Substance use type: does not use Housing: house Do you feel safe at home: Yes Do you feel safe in your relationship?: Yes Additional Social history: lives alone Meds Allergies and Home Medications Allergies Allergy/AdvReac Type Severity Reaction Status Date / Time No Known Allergies Allergy Unverified 06/10/23 10:25 Home Medications Medication Instructions Recorded Confirmed Type aspirin 81 mg tablet,delayed 81 mg PO DAILY 05/25/15 06/07/23 History release (Aspir-) hydrochlorothiazide 25 mg tablet 25 mg PO DAILY 10/12/21 06/10/23 History pravastatin 10 mg tablet 10 mg PO DAILY 10/12/21 06/10/23 History albuterol sulfate 90 mcg/actuation 2 puff inhalation Q6H PRN 04/19/23 06/07/23 History aerosol inhaler (ProAir HFA) cholecalciferol (vitamin D3) 25 25 mcg PO DAILY 04/19/23 06/07/23 History mcg (1,000 unit) capsule multivitamin 1 tab PO DAILY 04/19/23 06/07/23 History ondansetron HCl 4 mg tablet 4 mg PO Q8H PRN nausea and 05/01/23 06/10/23 Rx vomiting #3 tabs Exam Const General: cooperative, healthy appearing and not in acute distress Neck Neck: normal visual inspection, no lymphadenopathy and supple Thyroid: thyroid normal Resp Effort & Inspection: normal respiratory effort Auscultation: clear to auscultation bilaterally Cardio Jugular venous pressure: no JVD Rate: regular rate Rhythm: regular rhythm Heart Sounds: S1 normal and S2 normal GI Inspection: normal to inspection Palpation: soft, no guarding, no hernias and nontender Percussion: normal to percussion Auscultation: normal bowel sounds Neuro General: patient alert, patient awake and patient oriented x3 Psych Appearance: grossly normal Results Last Vital Signs Temp 97.2 F L 06/10/23 10:15 Pulse 79 06/10/23 10:15 Resp 20 06/10/23 10:15 BP 178/75 H 06/10/23 10:15 Pulse Ox 99 06/10/23 10:15 Time Spent Time spent with Patient: <40 minutes Time was spent: counseling the patient
--- NOTE | 2023-06-10 13:33 | BOWEL_PTH ---
PATIENT: Dennise Manzo LOC: [facility] U#:[id number] AGE/SX: 83/F ROOM: RE06/10/[address]: Juwan Ch MD : 1940 BED: DIS: 06/10/2023 SPEC #: [id number] RECD: 06/10/23 17:30 STATUS: NAKUL REQ #: [id number] MACIE: 06/10/23 13:[address]: Juwan Ch DEPT: Surgical Specimen RECD BY: Taylor Heredia ENTERED: 06/10/23 17:31 SP TYPE: Bowel OTHR DR: Esperanza Mcfarlane Tissues: 1 - BIOPSY BOWEL 2 - BIOPSY BOWEL Procedures: GROSS AND MICRO LEVEL 4 Comments: [id number]
[2023-06-10 13:48] VITALS: BP 132/94; PULSE 77; RESP 18; TEMP 36.2; O2SAT 97
--- NOTE | 2023-06-10 14:01 | W.ANESPOSTOP ---
Postoperative Evaluation Date, Time and Location Date Performed: 06/10/23 Time Performed: 13:50 Patient Location: Day Surgery Unit Vital Signs Most Recent Imported Vital Signs: Most Recent Vital Signs Temp Pulse Resp BP Pulse Ox 36.2 C L 77 18 132/94 H 97 06/10/23 13:48 06/10/23 13:48 06/10/23 13:48 06/10/23 13:48 06/10/23 13:48 Pain Score Most Recent Pain Score: Most Recent Pain Score Pain Level 0 06/10/23 10:15 Assessment Mental Status: Awake (Alert & Oriented to Patient Baseline) Airway and Respiratory Function: Patent airway with normal (patient baseline) respiratory exam Cardiovascular Function: Hemodynamically Stable Hydration Status: Adequately Hydrated Nausea & Vomiting: No Nausea or Vomiting Pain: Pt. Denies Any Pain Peripheral Nerve Block: Patient did not receive a nerve block
[2023-06-10 14:20] VITALS: BP 102/69; PULSE 74; RESP 16; TEMP 36.5; O2SAT 98
== END 2023-06-10 09:47 | disposition home or self-care (01) ==
LOC: SUR 09:46
PROVIDERS: PCP Nurse Practitioner Family; Visit Provider Surgery
PROC: 0DJD8ZZ Inspection of Lower Intestinal Tract, Via Natural or Artificial Opening Endoscopic (ICD-10-PCS; CPT 45378; principal; 2023-06-10 11:15)
DX: Z12.11 Encounter for screening for malignant neoplasm of colon (principal); D12.0 Benign neoplasm of cecum; I10 Essential (primary) hypertension; Z87.891 Personal history of nicotine dependence; Z86.010 Personal history of colon polyps
CPT/HCPCS: 45380; 88305; J2704

== ENCOUNTER 2023-11-05 11:29 | Outpatient (REF) | payer MEDICARE, SELFPAY ==
[2023-11-05 17:53] LABS: ALT 21 U/L (14-59); AST 19 U/L (15-37); Albumin 3.8 g/dL (3.4-5.0); Alkaline Phosphatase 53 U/L (46-116); Anion Gap 8.3 mmol/L (3-11); BUN 15 mg/dL (7-18); Bilirubin, Total 0.72 mg/dL (0.2-1.0); CO2 30.7 mmol/L (21.0-32.0); CREATININE 0.8 mg/dL (0.55-1.02); Calcium 9.2 mg/dL (8.5-10.1); Calculated LDL 86 mg/dL (<100); Chloride 104 mmol/L (98-107); Cholesterol 183 mg/dL (<200); Estimated GFR 73.06 (mL/min/1.73m2); Glucose 111 mg/dL (74-106); HDL Cholesterol 60 mg/dL (40-60); Potassium 3.5 mmol/L (3.5-5.1); Sodium 143 mmol/L (136-145); Total Protein 7.2 g/dL (6.4-8.2); Triglyceride 185 mg/dL (<150)
== END 2023-11-05 11:30 | disposition home or self-care (01) ==
LOC: NCHCN 11:29
PROVIDERS: PCP Nurse Practitioner Family; Visit Provider Physician Assistant Medical
DX: I10 Essential (primary) hypertension (principal); E78.5 Hyperlipidemia, unspecified
CPT/HCPCS: 80053; 80061

== ENCOUNTER 2023-12-06 09:30 | Outpatient (CLI) | payer MEDICARE, SELFPAY ==
--- NOTE | 2023-12-06 11:00 | DI.MAMMO_ITS ---
Exam(s) MAMMO SCREENING EXAM: MAMMO SCREENING CLINICAL HISTORY: SCREENING MAMMO Z12.31. TECHNIQUE: Bilateral full field digital CC and MLO mammographic images were obtained with 3D tomosyn thesis and utilizing computer aided detection (CAD). COMPARISON: Prior mammograms were reviewed. FINDINGS: There has been no significant change in the appearance and distribution of the fibroglandular tissue. There are no new spiculated masses nor malignant appearing microcalcification groups. There is no significant architectural distortion nor skin thickening-retraction. IMPRESSION: No radiographic evidence of malignancy. BI-RADS Category 1 - Negative Breast Density - Category B - Scattered areas of fibroglandular density Breast density Category C or D implies that the patient has dense breast tissue. Dense breast tissue can make it harder to find cancer on a mammogram. Dense breast tissue is also associated with an incr eased risk of breast cancer. This information about the result of the mammogram report was provided to the patient to raise their awareness. Use this report when you speak with the patient about their risks for breast cancer, which includes their family history. At that time, you may recommend additional screening tests (Ultrasoun d or MRI) as these tests may add significant information. A negative radiographic report should not delay biopsy if a dominant or clinically suspicious mass is present. Up to ten percent of cancers are not identified on mammography. A negative report may reinforce clinical impression. Adenosis and dense breasts may obscure an underlying neoplasm. False positive reports average 6 to 10%. Patient will receive a letter notifying them of these results.
== END 2023-12-06 09:50 ==
LOC: DI 09:30
PROVIDERS: PCP Physician Assistant Medical; Visit Provider Physician Assistant Medical
DX: Z12.31 Encounter for screening mammogram for malignant neoplasm of breast (principal)
CPT/HCPCS: 77063; 77067

== ENCOUNTER 2024-11-17 10:17 | Outpatient (REF) | payer MEDICARE, SELFPAY ==
[2024-11-17 15:18] LABS: HCT 37.9 % (36.0-46.0); HGB 13.3 g/dL (11.2-15.7); MCH 31.6 pg (27.0-33.0); MCHC 35.1 % (32.0-36.0); MCV 90 fL (80-95); MPV 9.8 fL (8.0-11.0); Platelet Count 293 10^3/uL (130-400); RBC 4.21 10^6/uL (3.93-5.22); RDW 12.5 % (11.7-14.6); RDW-SD 41.2 fL; WBC 6.48 10^3/uL (4.4-10.8)
[2024-11-17 18:05] LABS: ALT 21 U/L (14-59); AST 21 U/L (15-37); Albumin 3.8 g/dL (3.4-5.0); Alkaline Phosphatase 56 U/L (46-116); Anion Gap 10.1 mmol/L (3-11); BUN 18 mg/dL (7-18); Bilirubin, Total 0.8 mg/dL (0.2-1.0); CO2 29.9 mmol/L (21.0-32.0); Calcium 9.7 mg/dL (8.5-10.1); Calculated LDL 107 mg/dL (<100); Chloride 101 mmol/L (98-107); Cholesterol 195 mg/dL (<200); Estimated GFR 72.61 (mL/min/1.73m2); Glucose 109 mg/dL (74-106); HDL Cholesterol 56 mg/dL (>or=50); Potassium 3.4 mmol/L (3.5-5.1); Sodium 141 mmol/L (136-145); Total Protein 7.3 g/dL (6.4-8.2); Triglyceride 164 mg/dL (<150)
[2024-11-17 18:06] LABS: Hemoglobin A1C 5.3 % (<5.7)
== END 2024-11-17 10:18 | disposition home or self-care (01) ==
LOC: NCHCN 10:17
PROVIDERS: PCP Physician Assistant Medical; Visit Provider Physician Assistant Medical
DX: I10 Essential (primary) hypertension (principal); Z13.1 Encounter for screening for diabetes mellitus; E78.5 Hyperlipidemia, unspecified
CPT/HCPCS: 80053; 80061; 85027; 83036

== ENCOUNTER 2024-12-18 18:02 | Outpatient (REF) | payer MEDICARE, SELFPAY ==
[2024-12-18 15:33] LABS: Anion Gap 7.5 mmol/L (3-11); BUN 13 mg/dL (7-18); CO2 30.5 mmol/L (21.0-32.0); Calcium 9.1 mg/dL (8.5-10.1); Chloride 104 mmol/L (98-107); Estimated GFR 85.23 (mL/min/1.73m2); Glucose 108 mg/dL (74-106); Potassium 3.8 mmol/L (3.5-5.1); Sodium 142 mmol/L (136-145)
== END 2024-12-18 18:03 | disposition home or self-care (01) ==
LOC: NCHCN 18:02
PROVIDERS: PCP Physician Assistant Medical; Visit Provider Physician Assistant Medical
DX: I10 Essential (primary) hypertension (principal)
CPT/HCPCS: 80048

== ENCOUNTER 2024-12-22 00:55 | Outpatient (CLI) | payer MEDICARE, SELFPAY ==
--- NOTE | 2024-12-22 | DI.DEXA_ITS ---
Exam(s) XR DEXA BONE DENSITY W/WO CHICHI EXAM: XR DEXA BONE DENSITY W/WO CHICHI CLINICAL HISTORY: OSTEOPOROSIS,M81.0 TECHNIQUE: Routine DEXA evaluation of the lumbar spine, hip, or forearm. COMPARISON: CR XR DEXA BONE DENSITY W/WO CHICHI from 11/09/2022 FINDINGS: Performed on a [employer] unit. Lateral image: No compression fracture evident. Lumbar Spine total T-score: 0.6 which is within normal limits. Prior reading in October 2022 was 0.4. Hip total T-score:-1.4. This is osteopenia range. Prior reading in 2022 was - 1.7. Independent reading at the level of the femoral neck yields T-score of -2.7 which is osteoporosis range. Prior reading at the neck level in October 2022 was -2.6 which was also osteoporosis range. Forearm total T-score: -2.4 which is osteopenia range. Prior reading in October 2022 was -2.8. IMPRESSION: Bone mineral density remains in the osteoporosis range at the femoral neck level. Fracture risk is high at this level. Forearm/wrist reading is again osteopenia range with moderate fracture risk. Lumbar spine score remains within normal limits and thus low fracture risk this level. Note: Any spine fracture indicates 5x risk for subsequent spine fracture and 2x risk for subsequent hip fracture. World Health Organization criteria for BMD interpretation classify patients: Normal...... T- Score at or above -1.0 Osteopenic... T- Score between -1.0 and -2.5 Osteoporosis... T-Score at or below -2.5
--- NOTE | 2024-12-22 09:35 | DI.MAMMO_ITS ---
Exam(s) MAMMO SCREENING EXAM: MAMMO SCREENING CLINICAL HISTORY: SCREENING,Z12.31. TECHNIQUE: Bilateral full field digital CC and MLO mammographic images were obtained with 3D tomosynthesis and utilizing computer aided detection (CAD). COMPARISON: Prior mammograms were reviewed. FINDINGS: There has been no significant change in the appearance and distribution of the fibroglandular tissue. There are no new spiculated masses nor malignant appearing microcalcification groups. There is no significant architectural distortion nor skin thickening-retraction. IMPRESSION: No radiographic evidence of malignancy. BI-RADS Category 1 - Negative Breast Density - Category B - There are scattered areas of fibroglandular density. Breast density Category C or D implies that the patient has dense breast tissue. Dense breast tissue can make it harder to find cancer on a mammogram. Dense breast tissue is also associated with an increased risk of breast cancer. This information about the result of the mammogram report was provided to the patient to raise their awareness. Use this report when you speak with the patient about their risks for breast cancer, which includes their family history. At that time, you may recommend additional screening tests (Ultrasound or MRI) as these tests may add significant information. A negative radiographic report should not delay biopsy if a dominant or clinically suspicious mass is present. Up to ten percent of cancers are not identified on mammography. A negative report may reinforce clinical impression. Adenosis and dense breasts may obscure an underlying neoplasm. False positive reports average 6 to 10%. Patient will receive a letter notifying them of these results.
== END 2024-12-22 01:15 ==
PROVIDERS: PCP Physician Assistant Medical; Visit Provider Physician Assistant Medical
DX: M81.0 Age-related osteoporosis without current pathological fracture (principal); Z12.31 Encounter for screening mammogram for malignant neoplasm of breast
CPT/HCPCS: 77063; 77067; 77080